=== PATIENT | male | born 1960 | race Caucasian/White ===

== ENCOUNTER 2023-10-08 11:50 | Emergency (ER) | payer OTHER, SELFPAY ==
[2023-10-08 11:53] VITALS: BP 184/93
--- NOTE | 2023-10-08 12:54 | ED.SKININJ ---
HPI-Injury
General
Chief Complaint: Bite
Source: patient
Exam Limitations: none
Time Seen by Provider: 10/08/23 12:18
History of Present Illness-Injury
Initial Injury comments:
63-year-old male presents after he was bitten by dog in a store in town. The patient states it happened just prior to arrival. The dog was a pitbull. The dog was owned by the store marketer. He sustained multiple bites to the right hand both
dorsally and on the volar surface. He denies any other injuries. He does report his tetanus is up-to-date.
Past History
Past History
ED Past Medical History: CAD and Hypercholesterolemia
ED Past Surgical History: Cardiac (Stent) and Other (Hernia repair)
Social History
Tobacco: Former smoker
Alcohol: Daily (Wine 2-3 glasses)
Personal: Single
Living: alone
Phy Exam
Physical Exam
Physical Exam:
CONSTITUTIONAL Vital signs reviewed, Patient alert and oriented to person, place and time. Well-appearing
HEAD atraumatic, normocephalic.
EYES eyelids normal to inspection, Extraocular muscles intact, Conjunctiva normal, Sclera normal.
NECK normal range of motion, Trachea midline, no jugular venous distention.
RESP no respiratory distress
BACK No obvious deformities
UPPER EXTREMITY Gross Range of motion normal, gross motor strength normal. Normal flexor tendon strength throughout the 5 digits of the right hand. Normal extensor tendon strength throughout the 5 digits of the right hand. At least 5 small
lacerations noted on the dorsal and volar aspect of the right hand. Most sizable is about 1 cm to the dorsal hand just medial to the first webspace. There is a slightly more distal wound to the dorsal hand as well. He has this wound noted at the
proximal phalanx of the second digit with mild swelling in that area. He has a small wound to the palmar aspect as well. Normal distal cap refill. Bleeding is controlled
LOWER EXTREMITY Gross range of motion normal, Gross motor strength normal
NEURO Speech normal, No focal motor deficits include, Quinault coma scale 15, Memory normal, Cranial Nerves intact to screening exam.
SKIN Skin warm, dry, and normal in color.
PSYCHIATRIC Patient oriented to person place and time, Normal affect.
Course
Orders/Labs/Results
Orders:
Orders
10/08/23 12:41
Amoxicillin 875 mg/Clav 125 mg [Augmentin 875 mg/125 mg] 1 tablet PO NOW STA
Vital Signs
Initial and Last Documented VS:
Initial Vital Signs
Temp Pulse Resp BP Pulse Ox
98.7 F 72 16 184/93 98
10/08/23 11:53 10/08/23 11:53 10/08/23 11:53 10/08/23 11:53 10/08/23 11:53
Last Documented Vital Signs
Temp Pulse Resp BP Pulse Ox
98.7 F 72 16 184/93 98
10/08/23 11:53 10/08/23 11:53 10/08/23 11:53 10/08/23 11:53 10/08/23 11:53
MDM/Problems Addressed
MDM/Problems Addressed:
Dog bite, multiple lacerations, uncontrolled hypertension
Chronic conditions affecting care: HTN
*Pulse Oximetry
Patient hypoxic: no
*Critical Care Note
Total Time (30-74mins, 75-104mins- exclusive of procedures): Not Applicable
Data Reviewed
Source: patient
Prescriptions/Medications Considered But Not Given:
Consider blood pressure management but given his injury and acuity, recommend outpatient follow-up
Patient Management
Escalation/DeEscalation of care consider admission/obs:
Steri-Strips placed for loose approximation of 2 of the wounds. Cover with antibiotics. Tetanus is up-to-date. Outpatient follow-up for reevaluation.
ED Attending Note
-
Portions of this chart may have been created with voice recognition software.� Occasional wrong word or��sound alike� substitutions may have occurred due to the inherent limitations of voice recognition software.
Discharge Plan
Departure
Patient Disposition: Home (Routine Discharge)
Date of Disposition: 10/08/23
Time of Disposition: 13:22
Patient with high blood pressure during this ER visit?: Yes
Discharge Problem:
Dog bite
Instructions: Animal Bites (DC), BLOOD PRESSURE
Prescriptions:
New
amoxicillin-pot clavulanate 875-125 mg tablet
1 tab PO BID Qty: 14 0RF
No Action
aspirin 81 MG tablet,delayed release (DR/EC)
81 mg PO DAILY
lisinopril 5 MG tablet
5 mg PO DAILY
rosuvastatin [Crestor] 40 MG tablet
40 mg PO DAILY
Referrals:
Luis M Mills MD [Family Provider] -
Activity Restrictions/Additional Instructions:
Return immediately for redness of any kind, drainage, increased swelling, fevers or any other concerns. Please have your wounds rechecked in the next 2 to 3 days for follow-up and reevaluation.
Interventions
Interventions:
*Risk Screen - Suicide Last Done: 10/08/23 11:53
*Neglect/Abuse Screening Last Done: 10/08/23 11:53
*ED COVID-19 Vaccine History Last Done: 10/08/23 11:53
*Nursing Disposition Last Done: 10/08/23 13:28
ED-Skin Assessment Last Done: 10/08/23 13:27
Discharge Date and Time
Print Language: [place]
[2023-10-08] MEDS: AUGMENTIN 875 MG/125 MG 1 TABLET PO (13:03)
== END 2023-10-08 13:28 | disposition home or self-care (01) ==
LOC: EMR 11:50
PROVIDERS: EMERGENCY PHYSICIAN Emergency Medicine; FAMILY PHYSICIAN Internal Medicine
DX: S61.451A Open bite of right hand, initial encounter (principal); W54.0XXA Bitten by dog, initial encounter; I10 Essential (primary) hypertension; Z87.891 Personal history of nicotine dependence
CPT/HCPCS: 99283

== ENCOUNTER → 2023-11-17 06:14 | Day surgery (SDC) | payer OTHER, SELFPAY | LOC: GI 06:14 | PROVIDERS: ATTENDING PHYSICIAN Internal Medicine Gastroenterology; FAMILY PHYSICIAN Internal Medicine | DX: K22.70 Barrett's esophagus without dysplasia (principal); K31.89 Other diseases of stomach and duodenum; K22.89 Other specified disease of esophagus; R12 Heartburn | CPT/HCPCS: 43239; 88305; 88342 ==

== ENCOUNTER → 2025-02-04 14:14 | Outpatient (REF) | payer OTHER, SELFPAY | LOC: RCS 14:14 | PROVIDERS: ATTENDING PHYSICIAN Student in an Organized Health Care Education/Training Program; FAMILY PHYSICIAN Internal Medicine | DX: R06.09 Other forms of dyspnea (principal) | CPT/HCPCS: 93017; 93350 ==